=== PATIENT | male | born 1945 | race Two or more races ===

== ENCOUNTER 2021-02-21 08:59 | Inpatient (IN) | payer BC, OTHER ==
[~2021-02-21] VITALS: Ht 162.6 cm; Wt 68.0 kg
[2021-02-21] MEDS ORDERED: ASPirin 81 mg TAB PO ONE (10:00)
[2021-02-21 10:09] LABS: Basophils # (auto) 0 10 ^3/uL (0-0.2); Basophils % (auto) 0.5 % (0.0-2.0); Eosinophils # (auto) 0 10 ^3/uL (0-0.8); Eosinophils % (auto) 0.3 % (0.0-7.0); Hematocrit 46.5 % (41.0-53.0); Hemoglobin 15.7 g/dL (13.5-17.5); Lymphocytes # (auto) 1.4 10 ^3/uL (0.4-5.4); Lymphocytes % (auto) 17.4 % (10.0-50.0); Mean Corpuscular Hemoglobin 27.9 pg (28.0-32.0); Mean Corpuscular Hgb Conc. 33.8 g/dL (32.0-36.0); Mean Corpuscular Volume 82.6 fL (80.0-100.0); Monocytes # (auto) 0.6 10 ^3/uL (0-1.3); Monocytes % (auto) 7.8 % (0.0-12.0); Nucleated Red Blood Cells % 0.1 %; Red Blood Cells 5.63 10^6/uL (4.5-5.90); Red Cell Distribution Width 14.9 % (11.8-14.3); White Blood Cell 8.1 10^3/uL (4.4-10.8)
[2021-02-21 10:16] LABS: Albumin 3.8 g/dL (3.4-5.0); Anion Gap 5 (5-15); Blood Urea Nitrogen 14 mg/dL (7-18); Calcium 8.8 mg/dL (8.5-10.1); Carbon Dioxide 22 mmol/L (21-32); Chloride 107 mmol/L (98-107); Glucose 210 mg/dL (74-106); Potassium 3.7 mmol/L (3.5-5.1); Sodium 134 mmol/L (136-145)
[2021-02-21 10:22] LABS: Alanine Aminotransferase 390 U/L (16-61); Alkaline Phosphatase 181 U/L (45-117); Aspartate Aminotransferase 601 U/L (15-37); BUN/Creatinine Ratio 11.4; Bilirubin, Total 2.3 mg/dL (0.2-1.0); GFR African American 74 mL/min; GFR Non-African American 61 mL/min; Total Protein 7.3 g/dL (6.4-8.2)
[2021-02-21 10:32] LABS: INR 1.05 (0.9-1.15); Partial Thromboplastin Time 24.9 sec (23.6-33.0)
[2021-02-21] MEDS ORDERED: DEXTROSE (50%) 50ML SYRG IV PRN (12:45)
[2021-02-21] MEDS ORDERED: NITROGLYCERIN 0.4 MG SL TAB SL PRN ×2 (12:45→14:30)
[2021-02-21] MEDS ORDERED: MORPHINE SULFATE INJECTION 2 MG/ML SYRG IV PRN ×4 (12:45→14:30)
[2021-02-21] MEDS ORDERED: ONDANSETRON HCL 4 MG/2 ML VIAL IV PRN ×2 (12:45→14:30)
[2021-02-21] MEDS ORDERED: hydrALAZINE HCL 20 MG/ML VL IV PRN (14:15)
[2021-02-21] MEDS ORDERED: ENOXAPARIN SOD 40 MG/0.4 ML SYRINGE SC ONE (14:15)
[2021-02-21] MEDS ORDERED: cefTRIAXone 1GM/50ML D5W 50 ML IV ONE (14:15)
[2021-02-21] MEDS ORDERED: SOTALOL HCL 80 MG TAB PO ONE (14:15)
[2021-02-21] MEDS ORDERED: SODIUM CHLORIDE 0.9% 1,000 ML IV ONE (14:15)
[2021-02-21] MEDS ORDERED: SOTA80TA62 PO (14:19)
[2021-02-21] MEDS ORDERED: HYDR5CRE3 TOP (14:19)
[2021-02-21] MEDS ORDERED: PANC3600 PO (14:19)
[2021-02-21] MEDS ORDERED: PANT40T PO (14:19)
[2021-02-21] MEDS ORDERED: LEVO75TA6 PO (14:19)
[2021-02-21] MEDS ORDERED: MIN25T PO (14:19)
[2021-02-21] MEDS ORDERED: AMLO-489 PO (14:19)
[2021-02-21] MEDS ORDERED: FUR20T PO (14:19)
[2021-02-21] MEDS ORDERED: ASPI1TAB37 PO (14:19)
[2021-02-21] MEDS ORDERED: POTA10TA32 PO (14:19)
[2021-02-21] MEDS ORDERED: ATOR20TA50 PO (14:19)
[2021-02-21] MEDS ORDERED: TAMS0.4C36 PO (14:19)
[2021-02-21] MEDS ORDERED: MOME1SPR2 NAS (14:19)
[2021-02-21] MEDS ORDERED: CETI-120 PO (14:19)
[2021-02-21] MEDS ORDERED: PSYL1.7W2 PO (14:21)
[2021-02-21] MEDS ORDERED: SUCR1TAB PO (14:25)
[2021-02-21] MEDS ORDERED: ALUM & MAG HYDROX-SIMETH LIQ(MAALOX) 30 ML PO PRN (14:30)
[2021-02-21] MEDS ORDERED: DOCUSATE SOD 100 MG CAP PO PRN (14:30)
[2021-02-21] MEDS ORDERED: LORazepam 0.5 MG TAB PO PRN (14:30)
[2021-02-21] MEDS ORDERED: HYDROcodone-ACET 5/325MG TAB PO PRN (14:30)
[2021-02-21] MEDS ORDERED: SUCRALFATE 1 GM/10 ML ORAL SUSP PO ONE (14:45)
[2021-02-21] MEDS: SODIUM CHLORIDE 0.9% 1,000 ML IV SCH (14:47)
[2021-02-21] MEDS ORDERED: metroNIDAZOLE 500MG/100ML 100 ML IV ONE (15:00)
[2021-02-21] MEDS: InsuLIN REG 1unit/0.01ml Soln (100units/ml) SC SCH (17:00)
[2021-02-21] MEDS: ACCU-CHEK COMFORT CURVE STRIP VI SCH ×2 (17:17→21:18)
[2021-02-21] MEDS: PANCREATIC ENZYMES 4200 UNIT CAP PO SCH (18:00)
[2021-02-21] MEDS ORDERED: TAMSULOSIN HYDROCHLORIDE 0.4 MG CAP PO SCH (18:00)
[2021-02-21] MEDS: FUROSEMIDE 20 MG/2 ML VIAL IV SCH (18:46)
[2021-02-21 20:40] LABS: Urine WBC None Seen /hpf (0 - 3)
[2021-02-21 20:56] LABS: Urine Bacteria NONE SEEN /hpf (None Seen); Urine Blood Negative /uL (Negative); Urine Specific Gravity 1.005 (1.001-1.035)
[2021-02-21 21:01] LABS: Alcohol, Urine < 3.0 mg/dL (0-10); Amphetamine Screen, Urine NEGATIVE (NEGATIVE); Barbiturate Scree,Urine NEGATIVE (NEGATIVE); Benzodiazephine Screen, Urine NEGATIVE (NEGATIVE); Cannabinoid Screen, Urine NEGATIVE (NEGATIVE); Cocaine Screen, Urine NEGATIVE (NEGATIVE); Opiate Scree,Urine NEGATIVE (NEGATIVE); Phencyclidine Screen, Urine NEGATIVE (NEGATIVE)
[2021-02-21] MEDS: metroNIDAZOLE 500MG/100ML 100 ML IV SCH (21:28)
[2021-02-21] MEDS: FAMOTIDINE (10MG/ML) 2ML VL IV SCH (21:28)
[2021-02-21] MEDS: SOTALOL HCL 80 MG TAB PO SCH (21:28)
[2021-02-21] MEDS: POTASSIUM CHL 20 Meq TABLET PO SCH (21:29)
[2021-02-21] MEDS: SUCRALFATE 1 GM/10 ML ORAL SUSP PO SCH (21:29)
[2021-02-21] MEDS ORDERED: ATORVASTATIN 20 MG TAB PO SCH (22:00)
[2021-02-21] MEDS ORDERED: InsuLIN REG 1unit/0.01ml Soln (100units/ml) SC SCH (22:00)
[2021-02-21 22:13] VITALS: BP 121/69
[2021-02-22 05:14] VITALS: BP 130/76
[2021-02-22] MEDS: InsuLIN REG 1unit/0.01ml Soln (100units/ml) SC SCH ×2 (06:08→11:30)
[2021-02-22] MEDS: ACCU-CHEK COMFORT CURVE STRIP VI SCH ×2 (06:08→11:39)
[2021-02-22] MEDS: SODIUM CHLORIDE 0.9% 1,000 ML IV SCH (06:13)
[2021-02-22] MEDS: FUROSEMIDE 20 MG/2 ML VIAL IV SCH (06:13)
[2021-02-22] MEDS: SUCRALFATE 1 GM/10 ML ORAL SUSP PO SCH ×2 (06:13→11:30)
[2021-02-22] MEDS: metroNIDAZOLE 500MG/100ML 100 ML IV SCH ×2 (06:34→14:00)
[2021-02-22] MEDS ORDERED: LEVOTHYROXINE SODIUM 25 MCG TAB PO SCH (07:00)
[2021-02-22 07:33] LABS: Basophils # (auto) 0 10 ^3/uL (0-0.2); Basophils % (auto) 0.4 % (0.0-2.0); Eosinophils # (auto) 0.1 10 ^3/uL (0-0.8); Eosinophils % (auto) 1.1 % (0.0-7.0); Hemoglobin 15.9 g/dL (13.5-17.5); Lymphocytes # (auto) 2.3 10 ^3/uL (0.4-5.4); Mean Corpuscular Hgb Conc. 33.9 g/dL (32.0-36.0); Mean Corpuscular Volume 82.8 fL (80.0-100.0); Monocytes # (auto) 0.8 10 ^3/uL (0-1.3); Monocytes % (auto) 10.3 % (0.0-12.0); Neutrophils % (auto) 60.2 % (37.0-80.0); Nucleated Red Blood Cells % 0.1 %; Red Blood Cells 5.68 10^6/uL (4.5-5.90); Red Cell Distribution Width 15.2 % (11.8-14.3); White Blood Cell 8.3 10^3/uL (4.4-10.8)
[2021-02-22 07:51] LABS: Alanine Aminotransferase 198 U/L (16-61); Albumin 3.2 g/dL (3.4-5.0); Anion Gap 13 (5-15); Aspartate Aminotransferase 105 U/L (15-37); BUN/Creatinine Ratio 11.7; Blood Urea Nitrogen 14 mg/dL (7-18); Calcium 8.2 mg/dL (8.5-10.1); Carbon Dioxide 21 mmol/L (21-32); Chloride 106 mmol/L (98-107); GFR African American 76 mL/min; GFR Non-African American 63 mL/min; Glucose 137 mg/dL (74-106); Potassium 3.5 mmol/L (3.5-5.1); Sodium 140 mmol/L (136-145)
[2021-02-22] MEDS: PANCREATIC ENZYMES 4200 UNIT CAP PO SCH ×2 (08:00→11:39)
[2021-02-22 08:03] LABS: Alkaline Phosphatase 143 U/L (45-117); Bilirubin, Total 2.7 mg/dL (0.2-1.0); Phosphorus 2.2 mg/dL (2.5-4.90); Total Protein 6.8 g/dL (6.4-8.2)
[2021-02-22 08:28] LABS: INR 1.11 (0.9-1.15); Partial Thromboplastin Time 30.3 sec (23.6-33.0)
[2021-02-22 09:00] VITALS: BP 101/67
[2021-02-22] MEDS ORDERED: cefTRIAXone 1GM/50ML D5W 50 ML IV SCH (09:00)
[2021-02-22] MEDS ORDERED: ENOXAPARIN SOD 40 MG/0.4 ML SYRINGE SC SCH (10:00)
[2021-02-22] MEDS ORDERED: ASPirin 81 mg TAB PO SCH (10:00)
[2021-02-22] MEDS: FAMOTIDINE (10MG/ML) 2ML VL IV SCH (10:00)
[2021-02-22] MEDS: SOTALOL HCL 80 MG TAB PO SCH (10:00)
[2021-02-22] MEDS: POTASSIUM CHL 20 Meq TABLET PO SCH (10:00)
[2021-02-22 14:48] VITALS: BP 125/81
[2021-02-22 15:01] VITALS: BP 101/67
[2021-02-24 13:46] LABS: Hepatitis A Ab IgM Negative
[2021-02-24 13:54] LABS: Hepatitis B Surface Antigen Negative (Negative)
[2021-02-24 14:03] LABS: Hepatitis B Core IgM Negative
[2021-02-24 14:23] LABS: Hepatitis C Antibody Negative (Negative)
== END 2021-02-22 15:35 | disposition home or self-care (01) | DRG 392 ==
LOC: ER 08:59 → TELE 14:27 → TELE-CENTR 17:37
PROVIDERS: ADMIT Hospitalist; ATTEND Hospitalist
DX: K21.9 Gastro-esophageal reflux disease without esophagitis (principal); I24.9 Acute ischemic heart disease, unspecified; B17.9 Acute viral hepatitis, unspecified; I49.5 Sick sinus syndrome; N40.0 Benign prostatic hyperplasia without lower urinary tract symptoms; K80.50 Calculus of bile duct without cholangitis or cholecystitis without obstruction; I44.0 Atrioventricular block, first degree; Z20.822 Contact with and (suspected) exposure to COVID-19; E11.65 Type 2 diabetes mellitus with hyperglycemia; E78.5 Hyperlipidemia, unspecified; I10 Essential (primary) hypertension; K74.60 Unspecified cirrhosis of liver; Z90.49 Acquired absence of other specified parts of digestive tract
CPT/HCPCS: 36415; 71045; 74176; 76705; 80053; 80074; 80307; 81001; 82962; 83036; 83735; 83880; 84100; 84484; 85025; 85610; 85730; 87040; 87086; 87426; 93005; 93306; 96365; 96368; 96375; G0378; J0696; J1815; J3490

== ENCOUNTER 2024-02-06 23:30 | Emergency (ER) | payer BC, MEDICAID ==
[~2024-02-06] VITALS: Ht 167.6 cm; Wt 75.0 kg
[~2024-02-06 23:30] MED LIST: AMLO1TAB22 PO; ASPI-628 PO; ATOR20TA50 PO; CETI-120 PO; FURO20TA4 PO; HYDR5CRE3 TOP; LEVO75TA6 PO; MIN25T PO; MOME1SPR3 NAS; PANC3600 PO; PANT40T PO; POTA-228 PO; PSYL1.7W2 PO; SOTA80TA62 PO; SUCR1TAB PO; TAMS0.4C39 PO
[2024-02-06] MEDS: IOHEXOL 300 MG/ML 100ML BOTTLE IJ ONE (23:53)
[2024-02-07 00:01] LABS: Basophils # (auto) 0 10 ^3/uL (0-0.2); Basophils % (auto) 0.4 % (0.0-2.0); Eosinophils # (auto) 0 10 ^3/uL (0-0.8); Eosinophils % (auto) 0.6 % (0.0-7.0); Hematocrit 36.6 % (41.0-53.0); Hemoglobin 12.4 g/dL (13.5-17.5); Lymphocytes # (auto) 0.8 10 ^3/uL (0.4-5.4); Lymphocytes % (auto) 11.6 % (10.0-50.0); Mean Corpuscular Hemoglobin 28.5 pg (28.0-32.0); Mean Corpuscular Hgb Conc. 33.9 g/dL (32.0-36.0); Monocytes # (auto) 0.2 10 ^3/uL (0-1.3); Monocytes % (auto) 2.6 % (0.0-12.0); Neutrophils # (auto) 6.2 10 ^3/uL (1.6-8.6); Neutrophils % (auto) 84.8 % (37.0-80.0); Platelet Count (auto) 112 10^3/uL (140-450); Red Blood Cells 4.36 10^6/uL (4.5-5.90); Red Cell Distribution Width 14.6 % (11.8-14.3); White Blood Cell 7.3 10^3/uL (4.4-10.8)
[2024-02-07 00:21] LABS: Alanine Aminotransferase 108 U/L (7-40); Albumin 3.8 g/dL (3.2-4.8); Alkaline Phosphatase 252 U/L (46-116); Anion Gap 10 (5-15); Aspartate Aminotransferase 301 U/L (13-40); BUN/Creatinine Ratio 10.5 (10.0-20.0); Blood Urea Nitrogen 8 mg/dL (9-23); Calcium 8.6 mg/dL (8.7-10.4); Carbon Dioxide 25 mmol/L (20-31); Chloride 103 mmol/L (98-107); Glucose 191 mg/dL (74-106); Sodium 138 mmol/L (136-145)
[2024-02-07 00:22] LABS: Bilirubin, Total 2.2 mg/dL (0.2-1.0)
[2024-02-07 00:24] LABS: Lactic Acid w/Reflex 2.3 mmol/L (0.4-2.0); Potassium 2.3 mmol/L (3.5-5.1)
[2024-02-07 00:29] LABS: Lipase 893 U/L (12-53)
[2024-02-07] MEDS: ONDANSETRON HCL 4 MG/2 ML VIAL IV ONE ×2 (00:34→02:43)
[2024-02-07] MEDS: FAMOTIDINE (10MG/ML) 2ML VL IV ONE (00:34)
[2024-02-07] MEDS: MORPHINE SULFATE 4 MG/ML SYR/VIAL IV ONE ×2 (00:35→02:42)
[2024-02-07 00:40] VITALS: PULSE 70; RESP 17; O2SAT 94
[2024-02-07] MEDS: SODIUM CHLORIDE 0.9% 1,000 ML IV ONE (00:45)
[2024-02-07] MEDS: metroNIDAZOLE 500MG/100ML 100 ML IV ONE (02:30)
[2024-02-07] MEDS: POTASSIUM CHL 20MEQ/100ML 100 ML IV SCH (03:25)
[2024-02-07] MEDS: CEFEPIME 2GM/50ML NS 50 ML IV ONE (03:40)
[2024-02-07 05:33] VITALS: PULSE 86; RESP 26; O2SAT 93
[2024-02-07] MEDS: ACETAMINOPHEN IV 1000 MG/100ML (10MG/ML) IV ONE (06:31)
[2024-02-07 07:31] VITALS: BP 107/56; PULSE 73; RESP 21; TEMP 97.4; O2SAT 92
== END 2024-02-07 08:05 | disposition short-term general hospital (02) ==
LOC: ER 23:30 → EDUNIT# 23:30 → EDBD 23:30 → ER 02-07 08:05
DX: K85.10 Biliary acute pancreatitis without necrosis or infection (principal); R10.13 Epigastric pain; I10 Essential (primary) hypertension; E78.5 Hyperlipidemia, unspecified; Z90.49 Acquired absence of other specified parts of digestive tract; Z79.899 Other long term (current) drug therapy; Z79.82 Long term (current) use of aspirin
CPT/HCPCS: 36415; 71045; 74177; 80053; 83605; 83690; 84484; 85025; 93005; 96361; 96365; 96367; 96375; 96376; 99285; J0692; J2270; J2405; J3480; J3490; J7030; Q9967; J0131